=== PATIENT | male | born 1985 | race Caucasian/White ===

== ENCOUNTER 2020-10-19 16:01 | Emergency (ER) | payer OTHER ==
[~2020-10-19] VITALS: Ht 193 cm; Wt 108.0 kg
[2020-10-19] MEDS ORDERED: LANTUS SOL100 UNIT/1 (16:28)
== END 2020-10-19 21:38 | disposition home or self-care (01) ==
LOC: ER 16:01
DX: K52.89 Other specified noninfective gastroenteritis and colitis (principal); E11.65 Type 2 diabetes mellitus with hyperglycemia; Z79.4 Long term (current) use of insulin